=== PATIENT | female | born 1955 | race Caucasian/White ===

== ENCOUNTER 2021-11-08 08:00 | Outpatient (CLI) | payer OTHER ==
--- NOTE | 2021-11-08 16:36 | XRAY Report ---
PROCEDURE: Knee 4 View BILAT INDICATIONS: BILAT KNEE PAIN TECHNIQUE: 3 views of the bilateral knee(s) were acquired. COMPARISON: 03/08/2018 FINDINGS: Moderate to severe bilateral knee osteoarthritis with near complete loss of joint space and areas of suspected bone on bone contact. Findings are most pronounced in the medial femorotibial compartments and in the patellofemoral compartments. There is bilateral patellar subluxation and tilt. No fracture or dislocation. IMPRESSION: Moderate to severe bilateral tricompartmental osteoarthritis. Joint space narrowing is progressed from prior study. Reviewed by: Adarsh Streeter MD on 11/08/2021 4:35 PM PDT Approved by: Adarsh Streeter MD on 11/08/2021 4:35 PM PDT Station ID: [id number]
== END 2021-11-08 23:59 | disposition home or self-care (01) ==
LOC: DI.WOS 08:00
PROVIDERS: ATTEND Orthopaedic Surgery
DX: M17.0 Bilateral primary osteoarthritis of knee (principal)

== ENCOUNTER 2022-03-15 07:10 | Day surgery (SDC) | payer OTHER ==
[~2022-03-15 07:10] MED LIST: ACETAMINOPHEN 500 MG TABLET PO ONE; BUPIVACAINE 0.5% PF 30 ML VIAL ONE; CEFAZOLIN 2G/50ML 0.9% NS 2 GM/50 ML BAG IV ONE; CELECOXIB 100 MG CAPSULE PO ONE; DEXAMETHASONE 10 MG/ML VIAL ONE; KETOROLAC 30 MG/ML VIAL ONE; VANCOMYCIN 1 GM VIAL ONE
[2022-03-15] MEDS ORDERED: PROPOFOL 200 MG/20 ML VIAL IVP ONE (07:22)
[2022-03-15] MEDS ORDERED: PROPOFOL 500 MG/50 ML 500 MG/50 ML VIAL ONE (07:22)
[2022-03-15] MEDS ORDERED: MIDAZOLAM 2 MG/2 ML VIAL ONE (07:28)
[2022-03-15] MEDS ORDERED: fentaNYL 100 MCG/2 ML VIAL ONE (07:28)
[2022-03-15] MEDS ORDERED: DEXAMETHASONE 10 MG/ML VIAL ONE (07:29)
[2022-03-15] MEDS ORDERED: TRANEXAMIC ACID 1,000 MG/10 ML VIAL ONE (07:29)
[2022-03-15] MEDS ORDERED: BUPIVACAINE 0.5% PF 10 ML VIAL ONE (07:31)
[2022-03-15] MEDS ORDERED: LACTATED RINGERS 1,000 ML IV ONE ×2 (07:43→11:14)
--- NOTE | 2022-03-15 07:50 | ANESTHESIA ---
Pre-Anesthesia VS, & Labs - Diagnosis Bilat knee OA - Procedure R TKA Vital Signs: Temp Pulse Resp BP Pulse Ox O2 Flow Rate 36.8 C 112 H 16 147/86 H 96 03/15/22 07:27 03/15/22 07:27 03/15/22 07:27 03/15/22 07:27 03/15/22 07:27 Height: 5 ft 4.5 in Weight (kg): 81 kg Body Mass Index: 30.2 BMI Classification: Obese - NPO >8 hours - Is Patient ?: No - Lab Results Lab results reviewed: Yes Home Medications and Allergies Home Medications: Ambulatory Orders Acetaminophen [Tylenol] 650 mg PO Q6H PRN 03/06/22 Atorvastatin [Lipitor] 10 mg PO QPM 03/06/22 Calcium Carbonate [Antacid] 215 mg PO PRN PRN 03/06/22 Cholecalciferol [Vitamin D3] 50 mcg PO DAILY 03/06/22 Lysine HCl [l-Lysine] 1,000 mg PO PRN PRN 03/06/22 Multivitamin/Iron/Folic Acid [Centrum Women Tablet] 1 each PO DAILY 03/06/22 Naproxen Sodium [Aleve] 220 mg PO DAILY 03/06/22 metFORMIN [Glucophage] 500 - 1,000 mg PO BIDWM 03/06/22 Acetaminophen [Tylenol] 650 mg PO Q6H PRN 03/06/22 Atorvastatin [Lipitor] 10 mg PO QPM 03/06/22 Calcium Carbonate [Antacid] 215 mg PO PRN PRN 03/06/22 Cholecalciferol [Vitamin D3] 50 mcg PO DAILY 03/06/22 Lysine HCl [l-Lysine] 1,000 mg PO PRN PRN 03/06/22 Multivitamin/Iron/Folic Acid [Centrum Women Tablet] 1 each PO DAILY 03/06/22 Naproxen Sodium [Aleve] 220 mg PO DAILY 03/06/22 metFORMIN [Glucophage] 500 - 1,000 mg PO BIDWM 03/06/22 Allergies/Adverse Reactions: Allergies Allergy/AdvReac Type Severity Reaction Status Date / Time Iodinated Contrast Media Allergy Rash Verified 03/06/22 10:37 Anes History & Medical History - Anesthetic History Anesthesia Complications: reports: No previous complications Family history of Anesthesia Complications: Denies Family history of Malignant Hyperthermia: Denies - Medical History Cardiovascular: reports: Deep vein thrombosis Pulmonary: reports: Sleep apnea Gastrointestinal: reports: None Urinary: reports: None Musculoskeletal: reports: Osteoarthritis Endocrine/Autoimmune: reports: Type 2 diabetes Skin: reports: Rosacea Smoking Status: Never smoker - Surgical History General: reports: Bowel surgery, Colonoscopy Gynecologic: reports: Hysterectomy, Other Exam General: Alert, Oriented x3, Cooperative Dental: WNL Mouth Openin Fingerbreadth Neck Mobility: Normal Mallampati classification: II Thyromental Distance: 4-6 cm Respiratory: Lungs clear, Normal breath sounds, No respiratory distress Cardiovascular: Regular rate Neurological: Normal speech Mental/Cognitive Status: Alert/Oriented X3, Normal for patient Cognitive Status: Within normal limits Plan Anesthesia Type: General, Spinal, Adductor Block Consent for Procedure(s) Verified and Reviewed: Yes Code Status: Attempt Resuscitation ASA classification: 2-Mild systemic disease Is this case an emergency?: No
[2022-03-15] MEDS ORDERED: ATROPINE ABBOJECT 1 MG/10 ML SYRINGE IVP PRN (08:57)
[2022-03-15] MEDS ORDERED: ePHEDrine 50 MG/ML VIAL IVP PRN (08:57)
[2022-03-15] MEDS ORDERED: HYDROmorphone 0.5 MG/0.5 ML SYRINGE IVP PRN (08:57)
[2022-03-15] MEDS ORDERED: NALOXONE 0.4 MG/ML VIAL IVP PRN (08:57)
[2022-03-15] MEDS ORDERED: ONDANSETRON 4 MG/2 ML VIAL IVP PRN ×2 (08:57→11:20)
[2022-03-15] MEDS ORDERED: METOCLOPRAMIDE 10 MG/2 ML VIAL IVP PRN (08:57)
[2022-03-15] MEDS ORDERED: fentaNYL 100 MCG/2 ML VIAL IVP PRN (08:57)
[2022-03-15] MEDS ORDERED: MORPHINE 2 MG/ML CARPUJECT IVP PRN (08:57)
[2022-03-15] MEDS ORDERED: LACTATED RINGERS 1,000 ML IV SCH (09:00)
[2022-03-15] MEDS ORDERED: VANCOMYCIN 1 GM VIAL MC ONE ×2 (09:10)
[2022-03-15] MEDS ORDERED: BUPIVACAINE 0.5% PF 30 ML VIAL INFIL ONE ×2 (09:12)
[2022-03-15] MEDS ORDERED: KETOROLAC 30 MG/ML VIAL IVP ONE (09:13)
[2022-03-15] MEDS ORDERED: ROPIVACAINE 0.5% PF 30 ML VIAL ONE (10:32)
--- NOTE | 2022-03-15 10:41 | OPERATIVE REPORT ---
Operative Report - General Procedure Date: 03/15/22 Planned Procedure: Right total knee replacement Pre-Op Diagnosis: Osteoarthritis right knee Procedure Performed: Right total knee replacement using [employer] journey 2 Antibiotic cemented total knee system: #4 Oxinium cruciate substituting femoral component, #3 tibial baseplate with 10 mm tibial bearing with post, 23 mm biconcave patellar component Post Op Diagnosis: Same as preoperative diagnosis - Procedure Note Primary Surgeon: Edward Lockwood MD Secondary Surgeon: Chester Dockery Anesthesia Provider: Chevy Camara CRNA Anesthesia Technique: Regional block, Spinal Estimated Blood Loss (mL): 100 Indications: This is a 66-year-old woman with advanced bilateral knee osteoarthritis who is also diabetic. She has had chronic knee pain with activity that is progressively worsened despite nonoperative treatment. She has joint line tenderness, decreased motion, crepitus on right knee exam. Her routine x-rays show complete loss of joint space tricompartmental both knees. She has been evaluated preoperatively and found to be acceptable candidate for knee replacement surgery. She has signed informed consent in our office prior to surgery. Findings: There was considerable wear with eburnated surfaces to both medial and lateral compartments, osteophytes about the tibiofemoral and patellofemoral joints. Her cruciate ligament posteriorly was friable and lax. She had valgus laxity noted prior to surgery incision, best noted after anesthesia had been obtained.There was mild effusion and mild synovitis about the knee joint.There is no sign of overt infection. Complications: None - Other Other Information/Narrative: The patient was brought to the operating room and was placed in a supine position. She was given a adductor canal block by anesthesia. A pneumatic tourniquet was applied to the proximal right thigh over cast padding. This was a conical shaped Ludmila thigh tourniquet that was sterile. An adjustable leg rodriguez was placed on the operating room table to facilitate knee flexion of the left knee during surgery. A timeout procedure was performed by the entire operating room team and all were in agreement. A midline longitudinal incision was made with the knee in flexion. A medial parapatellar arthrotomy was made. The anterior horn of medial and lateral menisci were released and part of patellar fat pad was excised. The knee was flexed and the patella was dislocated laterally. A drill hole was made in the intramedullary notch with a 9.5 mm drill. Osteophytes about the proximal tibia and femur had been removed with a rongeur. The distal femoral cutting guide was aligned parallel to the posterior condyles. The intramedullary stacey and guide was advanced and the distal femoral guide was stabilized with half pins. The distal 5 degrees valgus cut was made through the distal femoral guide. Next the extra medullary tibial guide was assembled and applied and aligned to the mechanical axis in both sagittal and coronal planes. Tibial referencing was done to allow 3 mm of bone from the most affected side. The tibial guide was stabilized with half pins. Retractors were placed medially and laterally to protect the collateral ligaments and a retractor was placed directly against the posterior bone to sublux the tibia anteriorly. A [employer] precision 8 saw was used to make the tibial proximal cut. The tibial block was removed as a single piece and the menisci were excised as well. The extension gap was assessed with a extension block spacer using a 10 mm spacer and this was found to fit well as well as the 10 mm spacer block with the knee in 90 degrees of flexion. Next the femoral positioning guide was applied and aligned to the epicondylar axis and Yates line. This was secured in place with approximately 3 degrees of external rotation. The size of the femur at the anterior lateral trochlea was a #4. Drill holes were made in the 5 and 1 #4 cutting block was inserted and secured. The 5 cuts were made to the captured block using oscillating saw. The notch of the femur was removed with the reamers posteriorly and anteriorly as well as the box osteotome. The flexion gap was assessed with the 10 mm spacer and was found to fit well. The patella was then prepared. A 23 mm biconvex patellar reamer was used. The tibial trial #3 was then applied to the tibia and aligned to the mechanical axis. The drill and punch fin was utilized. Trial reduction was performed with the femoral and tibial components in place. Pulsatile lavage was performed. Hydrogen peroxide was used to help irrigate the bone surfaces prior to cementing as well as pulsatile lavage. A tourniquet was applied during the cementing process. The components were inserted sequentially: Tibia, femur and lastly patellar component. The tibial bearing was inserted after all the components had been cemented. The 10 mm tibial bearing with post gave good stability and alignment.Excess cement was removed and the knee was placed in extension during the hardening. Dilute Betadine irrigation was performed For 3 minutes. The knee had full range of motion, good patellar tracking. There was good stability of the knee in full extension mid flexion and 90 degrees of flexion. There was good alignment of the right knee. The tourniquet had been deflated and had been in place for 22 minutes. Hemostasis was achieved with electrocautery. Vancomycin powder 2 g were inserted in the arthrotomy prior to deep closure. The deep closure was performed with #2 Ethibond proximal and distal to the patella with the knee in 40 degrees of flexion. #1 stratofix suture was then used to close the arthrotomy incision. 2-0 Stratofix was used to close the subcutaneous tissue. 3-0 Monocryl was used to do a subcuticular skin closure. Dermabond was applied to the skin incision. After the Dermabond had hardened, a silver impregnated dressing was applied. She tolerated the procedure well and received 2 g of Ancef intravenously and 2 g of tranxamic acid. A surgical territory manager was utilized during the procedure and was found to be necessary component to help with exposure, protection of vital structures and closure.The patient did receive 2 g of Ancef intravenously, antibiotic impregnated cement and 1 g of Gaspar c-Myc acid. She did tolerate the procedure well
[2022-03-15] MEDS ORDERED: ONDANSETRON 4 MG/2 ML VIAL ONE (10:48)
[2022-03-15] MEDS ORDERED: fentaNYL 250 MCG/5 ML VIAL IVP PRN (11:20)
[2022-03-15] MEDS ORDERED: SODIUM CHLORIDE 0.9% 1,000 ML IV ONE (11:20)
[2022-03-15] MEDS ORDERED: DOCUSATE SODIUM 100 MG CAPSULE PO PRN (11:20)
[2022-03-15] MEDS ORDERED: SODIUM CHLORIDE FLUSH 0.9% 10 ML SYRINGE IVP PRN (11:20)
[2022-03-15] MEDS: ACETAMINOPHEN 500 MG TABLET PO SCH ×2 (12:22→18:31)
[2022-03-15] MEDS: NS W/20 MEQ KCL 1,000 ML IV SCH ×2 (12:23→22:24)
--- NOTE | 2022-03-15 12:23 | XRAY Report ---
PROCEDURE: Knee 2 View RT INDICATIONS: post operative imaging TECHNIQUE: 2 views of the right knee(s) were acquired. COMPARISON: None. FINDINGS: Bones: Postoperative changes following knee arthroplasty. Hardware appears to be in appropriate posit ion. Patellar resurfacing. Soft tissues: Postoperative changes. IMPRESSION: Postoperative changes following knee arthroplasty. Reviewed by: Werner Gross MD on 03/15/2022 12:22 PM PST Approved by: Werner Gross MD on 03/15/2022 12:22 PM PST Station ID: [id number]
[2022-03-15] MEDS: oxyCODONE 5 MG TABLET PO PRN ×2 (12:56→19:06)
--- NOTE | 2022-03-15 12:56 | ANESTHESIA POST OP EVALUATION ---
Anesthesia Post Eval - Post Anesthesia Eval Vitals: Last Vital Signs Temp 36.9 C 03/15/22 11:50 Pulse 90 03/15/22 12:03 Resp 16 03/15/22 11:50 BP 114/79 03/15/22 12:03 Pulse Ox 97 03/15/22 12:03 O2 Flow Rate CV Function Including HR & BP: Stable Pain Control: Satisfactory Nausea & Vomiting: Negative Mental Status: Baseline Respiratory Status: Airway Patent Hydration Status: Satisfactory Anesthesia Complications: None
[2022-03-15] MEDS ORDERED: CEFAZOLIN 2G/50ML 0.9% NS 2 GM/50 ML BAG IV SCH (16:00)
[2022-03-15] MEDS: SODIUM CHLORIDE FLUSH 0.9% 10 ML SYRINGE IVP SCH (17:08)
[2022-03-15] MEDS ORDERED: metFORMIN 500 MG TABLET PO SCH (21:00)
[2022-03-15] MEDS: CELECOXIB 100 MG CAPSULE PO SCH (22:13)
[2022-03-15] MEDS: ethyl alcohoL 62% SWAB AMPULE NAS SCH (22:13)
[2022-03-16] MEDS ORDERED: ceFAZolin 1 GM VIAL ONE (00:22)
[2022-03-16] MEDS: ACETAMINOPHEN 500 MG TABLET PO SCH ×3 (00:37→12:38)
[2022-03-16] MEDS: SODIUM CHLORIDE FLUSH 0.9% 10 ML SYRINGE IVP SCH ×2 (00:38→08:46)
[2022-03-16] MEDS ORDERED: CEFAZOLIN 2G/50ML 0.9% NS 2 GM/50 ML BAG IV SCH (01:00)
[2022-03-16] MEDS: ethyl alcohoL 62% SWAB AMPULE NAS SCH (08:45)
[2022-03-16] MEDS: CELECOXIB 100 MG CAPSULE PO SCH (08:45)
[2022-03-16] MEDS ORDERED: metFORMIN 500 MG TABLET PO SCH (09:00)
[2022-03-16] MEDS ORDERED: ASPIRIN EC 81 MG TABLET PO SCH (09:00)
[2022-03-16] MEDS: oxyCODONE 5 MG TABLET PO PRN (12:39)
[2022-03-16 13:13] VITALS: BP 125/84
--- NOTE | 2022-03-16 13:37 | PROVIDER PROGRESS NOTE ---
Subjective - General Procedure Date: 03/15/22 Post Op Days: 1 Procedure Performed: Right total knee arthroplasty - Review of Systems Wound/Incisions: positive: Healing well, Dressing dry and intact, No drainage General: positive: No symptoms. negative: Fever - Other Other Information/Narrative: Alert and oriented sitting in chair Reports she worked with physical therapy this morning and walked around the room 2 times with a front wheeled walker Sensation has returned after nerve block yesterday Pain is well controlled and she is tolerating oral intake of food No chest pain, trouble breathing, calf tenderness, nausea or vomiting Objective - Patient Data Vital Signs: Vital Signs x48h Temp Pulse Resp BP Pulse Ox 03/16/22 13:00 37.1 C 94 16 125/84 H 97 03/16/22 07:46 37.0 C 98 16 123/72 95 Weight: Weight 03/14/22 03/15/22 03/16/22 23:59 23:59 23:59 Weight (kg) 81 kg Intake & Output: Intake and Output Totals x24h 03/14/22 03/15/22 03/16/22 23:59 23:59 23:59 Intake Total 1450 2290 Output Total 750 800 Balance 700 1490 - Imaging Results Radiology Imaging: positive: Final report received (Radiologist report of x-ray includes expected postoperative changes for right total knee arthroplasty) - Current Medications Current Medications: Current Medications Generic Name Dose Route Start Last Admin Trade Name Freq PRN Reason Stop Dose Admin Acetaminophen 1,000 mg 03/15/22 12:00 03/16/22 12:38 Acetaminophen 500 Mg Tablet PO Not Given Q6H SUNDAR Alcohol 1 amp 03/15/22 21:00 03/16/22 08:45 Ethyl Alcohol 62% Swab Ampule JOSÉ MIGUEL 1 amp BID SUNDAR Administration Aspirin 81 mg 03/16/22 09:00 03/16/22 08:45 Aspirin Ec 81 Mg Tablet PO 81 mg BID SUNDAR Administration Celecoxib 200 mg 03/15/22 21:00 03/16/22 08:45 Celecoxib 100 Mg Capsule PO 200 mg BID SUNDAR Administration Docusate Sodium 100 mg 03/15/22 11:20 03/16/22 08:49 Docusate Sodium 100 Mg Capsule PO 100 mg BID PRN Administration Constipation Potassium Chloride/Sodium Chloride 1,000 mls @ 100 mls/hr 03/15/22 12:00 03/16/22 09:00 Normal Saline 0.9% W/20 Meq Kcl IV Infused .Q10H SUNDAR Infusion Metformin HCl 500 mg 03/16/22 09:00 03/16/22 08:45 Metformin 500 Mg Tablet PO 500 mg DAILY SUNDAR Administration Oxycodone HCl 5 mg 03/15/22 11:20 03/16/22 12:39 Oxycodone 5 Mg Tablet PO 5 mg Q6HR PRN Administration PAIN Sodium Chloride 10 ml 03/15/22 17:00 03/16/22 08:46 Sodium Chloride Flush 0.9% 10 Ml Syringe IVP Not Given 0100,0900,1700 SUNDAR - Physical Exam Wound/Incisions: positive: Healing well, Dressing dry and intact. negative: No drainage, Drainage, Erythema General Appearance: positive: No acute distress, Alert Respiratory: positive: No respiratory distress Skin: positive: Color nml, Warm, Dry. negative: Diaphoresis Extremities: positive: Nml appearance, No pedal edema, Other (Mepilex dressing in place without drainage. No erythema or hematoma formation about the right knee. Joshua bandage in place around Mepilex dressing). negative: Calf tenderness Neurologic/Psychiatric: positive: Oriented x3 Comments/Other: Sciatic and femoral nerve intact. Neurovascularly intact to right lower ext remity. Impression/Plan - Problem List Problem List: 66-year-old female with a past medical history of diabetes mellitus is postope rative day 1 from right total knee arthroplasty by Dr. Lockwood at [facility] on 03/15/2022. She is recovering well, tolerating oral intake without nausea or vomiting and well-controlled pain. Plan: -Weightbearing as tolerated with front wheel walker to right lower extremity -Physical therapy and Occupational Therapy to evaluate patient today and complete gait training -Multimodal pain control with Celebrex, Tylenol, oxycodone and IV fentanyl. She was prescribed oxycodone and tramadol for the outpatient setting. -Carb controlled diabetic diet -DVT prophylaxis with SCDs and 81 mg of aspirin twice daily for 6 weeks -Home medications include 500 mg of metformin daily in the morning and 1000 mg of metformin daily in the evening -[id number] glucose ordered today -She is ready for discharge from an orthopedic perspective pending PT evaluation -Follow-up with the orthopedic clinic in 5 days -For any questions please refer to your joint camp booklet and call the orthopedic office with any questions -Mepilex dressing to remain in place upon discharge. Should stay in place for up to 5 days until follow-up in the orthopedic office.
== END 2022-03-16 13:37 | disposition home or self-care (01) ==
LOC: SDS 07:10 → MS3 11:50 → SDS 03-16 13:37
PROVIDERS: ATTEND Orthopaedic Surgery
DX: M17.0 Bilateral primary osteoarthritis of knee (principal); E11.9 Type 2 diabetes mellitus without complications; E66.9 Obesity, unspecified; G47.30 Sleep apnea, unspecified; Z68.30 Body mass index [BMI] 30.0-30.9, adult; Z79.84 Long term (current) use of oral hypoglycemic drugs
CPT/HCPCS: 27447; 73560; 97110; 97161; 97165; 97530; A9270; C1713; J0690; J3370; J7120

== ENCOUNTER 2022-05-16 15:03 | Outpatient (CLI) | payer OTHER ==
--- NOTE | 2022-05-16 15:59 | XRAY Report ---
PROCEDURE: Knee 4 View RT INDICATIONS: RIGHT KNEE PAIN TECHNIQUE: 4 views of the right knee, one view of the left knee COMPARISON: 03/15/2022 FINDINGS: Bones: Expected appearance of the right knee arthroplasty. No displaced fracture or dislocation. Sof t tissue swelling is present. Patellar resurfacing. Soft tissues: Joint effusion is likely present. There is soft tissue swelling. Partially visualized left knee with advanced degenerative changes. IMPRESSION: Expected appearance of the right knee arthroplasty, with postoperative swelling and marii a. Partially visualized left knee with advanced degenerative changes. Reviewed by: Werner Gross MD on 05/16/2022 3:58 PM PST Approved by: Werner Gross MD on 05/16/2022 3:58 PM PST Station ID: [id number]
== END 2022-05-16 15:05 | disposition home or self-care (01) ==
LOC: DI.WOS 15:03
PROVIDERS: ATTEND Orthopaedic Surgery
DX: Z96.651 Presence of right artificial knee joint (principal); M17.12 Unilateral primary osteoarthritis, left knee

== ENCOUNTER 2022-06-27 14:30 | Outpatient (CLI) | payer OTHER ==
--- NOTE | 2022-06-27 16:28 | XRAY Report ---
PROCEDURE: Knee 4 View LT INDICATIONS: LEFT KNEE PAIN TECHNIQUE: 4 views of the left knee(s) were acquired. COMPARISON: None. FINDINGS: Bones: No fractures or dislocations. No suspicious bony lesions. Severe left knee tricompartmental osteophytic degenerative change with joint space narrowing and marginal osteophytosis. Soft tissues: No joint effusion. No suspicious soft tissue calcifications. IMPRESSION: Severe left knee tricompartmental osteoarthritis. Reviewed by: India Bowser MD, PhD on 06/27/2022 4:27 PM PST Approved by: India Bowser MD, PhD on 06/27/2022 4:27 PM PST Station ID: [id number]
== END 2022-06-27 14:41 | disposition home or self-care (01) ==
LOC: DI.WOS 14:30
PROVIDERS: ATTEND Orthopaedic Surgery
DX: M17.0 Bilateral primary osteoarthritis of knee (principal)

== ENCOUNTER 2022-08-23 06:32 | Day surgery (SDC) | payer OTHER ==
[~2022-08-23 06:32] MED LIST changes: -BUPIVACAINE 0.5% PF 30 ML VIAL ONE; -DEXAMETHASONE 10 MG/ML VIAL ONE; -KETOROLAC 30 MG/ML VIAL ONE; -VANCOMYCIN 1 GM VIAL ONE
[2022-08-23] MEDS ORDERED: LACTATED RINGERS 1,000 ML IV ONE ×2 (06:48→10:38)
[2022-08-23] MEDS ORDERED: HYDROmorphone 0.5 MG/0.5 ML SYRINGE IVP PRN (06:50)
[2022-08-23] MEDS ORDERED: MORPHINE 2 MG/ML CARPUJECT IVP PRN (06:50)
[2022-08-23] MEDS ORDERED: ATROPINE ABBOJECT 1 MG/10 ML SYRINGE IVP PRN (06:50)
[2022-08-23] MEDS ORDERED: ePHEDrine 50 MG/ML VIAL IVP PRN (06:50)
[2022-08-23] MEDS ORDERED: NALOXONE 0.4 MG/ML VIAL IVP PRN (06:50)
[2022-08-23] MEDS ORDERED: ONDANSETRON 4 MG/2 ML VIAL IVP PRN ×2 (06:50→10:40)
[2022-08-23] MEDS ORDERED: METOCLOPRAMIDE 10 MG/2 ML VIAL IVP PRN (06:50)
[2022-08-23] MEDS ORDERED: fentaNYL 100 MCG/2 ML VIAL IVP PRN (06:50)
--- NOTE | 2022-08-23 06:51 | ANESTHESIA ---
Pre-Anesthesia VS, & Labs - Diagnosis L knee OA - Procedure L TKA Height: 5 ft 4.5 in - NPO >8 hours - Is Patient ?: No - Lab Results Lab results reviewed: Yes Home Medications and Allergies Home Medications: Ambulatory Orders Aspirin [Aspirin EC] 81 mg PO DAILY 08/14/22 Ibuprofen [Motrin] 600 mg PO Q6H PRN 08/14/22 Metformin HCl [Metformin ER Osmotic] 500 mg PO DAILY 08/14/22 Acetaminophen [Tylenol] 650 mg PO Q6H PRN 03/06/22 Atorvastatin [Lipitor] 20 mg PO QPM 03/06/22 Cholecalciferol [Vitamin D3] 4,000 intlu PO DAILY 03/06/22 Lysine HCl [l-Lysine] 1,000 mg PO PRN PRN 03/06/22 Multivitamin/Iron/Folic Acid [Centrum Women Tablet] 1 each PO DAILY 03/06/22 Metformin HCl [Metformin ER Osmotic] 1,000 mg PO QPM 03/15/22 Aspirin [Aspirin EC] 81 mg PO DAILY 08/14/22 Ibuprofen [Motrin] 600 mg PO Q6H PRN 08/14/22 Metformin HCl [Metformin ER Osmotic] 500 mg PO DAILY 08/14/22 Allergies/Adverse Reactions: Allergies Allergy/AdvReac Type Severity Reaction Status Date / Time Iodinated Contrast Media Allergy Rash Verified 03/06/22 10:37 Anes History & Medical History - Anesthetic History Anesthesia Complications: reports: No previous complications Family history of Anesthesia Complications: Denies Family history of Malignant Hyperthermia: Denies - Medical History Cardiovascular: reports: Deep vein thrombosis Pulmonary: reports: Sleep apnea Gastrointestinal: reports: None Urinary: reports: None Musculoskeletal: reports: Osteoarthritis Endocrine/Autoimmune: reports: Type 2 diabetes Skin: reports: Rosacea Smoking Status: Never smoker - Surgical History General: reports: Bowel surgery, Colonoscopy Gynecologic: reports: Hysterectomy, Other Orthopedic: reports: Knee replacement Exam General: Alert, Oriented x3, Cooperative Dental: WNL Mouth Openin Fingerbreadth Neck Mobility: Normal Mallampati classification: II Thyromental Distance: 4-6 cm Respiratory: Lungs clear, Normal breath sounds, No respiratory distress Cardiovascular: Regular rate Neurological: Normal speech Mental/Cognitive Status: Alert/Oriented X3, Normal for patient Cognitive Status: Within normal limits Plan Anesthesia Type: General, Spinal Consent for Procedure(s) Verified and Reviewed: Yes Code Status: Attempt Resuscitation ASA classification: 2-Mild systemic disease Is this case an emergency?: No
[2022-08-23] MEDS ORDERED: fentaNYL 100 MCG/2 ML VIAL ONE ×2 (07:00→09:13)
[2022-08-23] MEDS ORDERED: LACTATED RINGERS 1,000 ML IV SCH (07:00)
[2022-08-23] MEDS ORDERED: MIDAZOLAM 2 MG/2 ML VIAL ONE (07:00)
[2022-08-23] MEDS ORDERED: BUPIVACAINE 0.5% PF 10 ML VIAL ONE (07:02)
[2022-08-23] MEDS ORDERED: PROPOFOL 500 MG/50 ML 500 MG/50 ML VIAL ONE (07:08)
[2022-08-23] MEDS ORDERED: DEXAMETHASONE 10 MG/ML VIAL ONE (07:14)
[2022-08-23] MEDS ORDERED: VANCOMYCIN 1 GM VIAL ONE (07:14)
[2022-08-23] MEDS ORDERED: BUPIVACAINE 0.25% PF 30 ML VIAL ONE ×4 (07:15→10:05)
[2022-08-23] MEDS ORDERED: KETOROLAC 30 MG/ML VIAL ONE (07:24)
[2022-08-23] MEDS ORDERED: TRANEXAMIC ACID 1,000 MG/10 ML VIAL ONE ×2 (07:55→10:34)
[2022-08-23] MEDS ORDERED: VANCOMYCIN 1 GM VIAL MC ONE (08:15)
[2022-08-23] MEDS ORDERED: KETOROLAC 30 MG/ML VIAL IVP ONE (08:16)
[2022-08-23] MEDS ORDERED: BUPIVACAINE 0.25% PF 30 ML VIAL SUBQ ONE ×2 (08:16)
[2022-08-23] MEDS ORDERED: HYDROGEN PEROXIDE 3% 473 ML BOTTLE TOP ONE (08:16)
[2022-08-23] MEDS ORDERED: PROPOFOL 200 MG/20 ML VIAL IVP ONE ×3 (08:46→10:07)
--- NOTE | 2022-08-23 10:15 | OPERATIVE REPORT ---
Operative Report - General Procedure Date: 08/23/22 Planned Procedure: Left Total knee replacement Pre-Op Diagnosis: Varus osteoarthritis left knee Procedure Performed: Left total knee replacement using Long [employer] Nephew journey 2, antibiotic cemented components: #4 Oxinium posterior stabilized femoral component, #3 primary tibial baseplate, 9 mm posterior cruciate substituting tibial bearing, 23 mm biconvex patellar component - Procedure Note Indications: This is a 66-year-old woman with advanced osteoarthritis of both knees, failure of conservative treatment as has been documented in the clinic notes. She had a right total knee replacement in February of last year with favorable outcome and desires similar outcome with her left knee. She did have joint line tenderness to left knee, varus deformity, decreased motion, crepitus, good strength and tracking of patella. Her x-rays showed advanced degenerative joint disease with [id number] of the medial compartment, narrowing of the lateral compartment, large osteophytes about the tibiofemoral and patellofemoral joint. She has been to joint camp, has had preoperative medical evaluation by primary care and signed informed consent agreeing to left total knee replacement surgery at [facility] as outpatient. Findings: There was complete loss of articular cartilage to the medial compartment, eburn ated bone surfaces, areas of full-thickness loss and wear to lateral compartment, complete loss of articular cartilage to patella, large osteophytes about the tibiofemoral and patellofemoral joint, cruciate ligaments and menisci intact Complications: None - Other Other Information/Narrative: The patient was brought to the operating room and was placed in a supine position. A pneumatic tourniquet was applied to the proximal left thigh over cast padding. This was a conical shaped Ludmila thigh tourniquet that was sterile. A bump was placed on the operating room table to facilitate knee flexion of the left knee during surgery. A timeout procedure was performed by the entire operating room team and all were in agreement. A midline longitudinal incision was made with the knee in flexion. A medial parapatellar arthrotomy was made. The anterior horn of medial and lateral menisci were released and part of patellar fat pad was excised. The knee was flexed and the patella was dislocated laterally. A drill hole was made in the intramedullary notch with a 9.5 mm drill. Osteophytes about the proximal tibia and femur had been removed with a rongeur. The distal femoral cutting guide was aligned parallel to the posterior condyles. The intramedullary stacey and guide was advanced and the distal femoral guide was stabilized with half pins. The distal 5 degrees valgus cut was made through the distal femoral guide. Next the extra medullary tibial guide was assembled and applied and aligned to the mechanical axis in both sagittal and coronal planes. Tibial referencing was done to allow 3 mm of bone from the most affected side and 10 mm from the least affected side. The tibial guide was stabilized with half pins. Retractors were placed medially and laterally to protect the collateral ligaments and a retractor was placed directly against the posterior bone to sublux the tibia anteriorly. An oscillating saw was used to make the tibial proximal cut. The tibial block was removed as a single piece and the menisci were removed as well. The extension and flexion gaps were assessed with a appropriate block spacers. A 10 mm spacer and this was found to fit well as well as the 9 mm spacer block with the knee in 90 degrees of flexion. Next the femoral positioning guide was applied and aligned to the epicondylar axis and Valley line. This was secured in place with approximately 3 degrees of external rotation. The size of the femur at the anterior lateral trochlea was a #4. Drill holes were made in the 5 and 1 #4 cutting block was inserted and secured. The 5 cuts were made to the captured block using oscillating saw. A trial femoral component was applied and notch reamers were used to remove the notch for the posterior stabilized femoral component The patella was then prepared. A biconvex patellar reamer was used. The tibial trial #3 was then applied to the tibia and aligned to the mechanical axis. Trial reduction was performed with the femoral and tibial components in place. Pulsatile lavage was performed. A tourniquet was applied during the cementing process. The components were inserted sequentially: Tibia, femur and lastly patellar component. Excess cement was removed and the knee was placed in extension during the hardening. Dilute Betadine irrigation was performed. The knee had full range of motion, good patellar tracking. There was good stability of the knee in full extension mid flexion and 90 degrees of flexion. There was good alignment of the left knee. The tourniquet had been deflated and had been in place for 37 minutes. Tourniquet time was longer because of problems with the nozzle cement sprayer helper and having to do 2 or 3 attempts to obtain satisfactory cement for utilization.Hemostasis was achieved with electrocautery. The deep closure was performed with #2 Ethibond proximal and distal to the patella with the knee in 40 degrees of flexion. 1. STRATAFIX suture was then used to close the arthrotomy incision. 2-0 Strata fix was used to close the subcutaneous tissue. 3-0 Monocryl was used to do a subcuticular skin closure. Dermabond was applied to the skin incision. After the Dermabond had hardened, a silver impregnated dressing was applied. She tolerated the procedure well and received 2 g of Ancef intravenously and 2 g of tranexamic acidA physician assistant family teacher was medically necessary to help with prepping and draping, positioning, protection of vital structures, assistance during the procedure including wound closure, dressing and/or splinting.A physician assistantWas utilized during the procedure to help with prepping and draping, retraction and protection of vital structures, wound closure and dressing application
[2022-08-23] MEDS ORDERED: oxyCODONE 5 MG TABLET PO PRN (10:40)
[2022-08-23] MEDS ORDERED: fentaNYL 250 MCG/5 ML VIAL IVP PRN (10:40)
[2022-08-23] MEDS ORDERED: SODIUM CHLORIDE FLUSH 0.9% 10 ML SYRINGE IVP PRN (10:40)
[2022-08-23] MEDS ORDERED: DOCUSATE SODIUM 100 MG CAPSULE PO PRN (10:40)
[2022-08-23] MEDS ORDERED: SODIUM CHLORIDE 0.9% 1,000 ML IV ONE (10:40)
--- NOTE | 2022-08-23 11:14 | XRAY Report ---
PROCEDURE: Knee 2 View LT INDICATIONS: post operative imaging TECHNIQUE: 2 views of the left knee(s) were acquired. COMPARISON: None. FINDINGS: Bones: Patient is status post left total knee arthroplasty. Left knee alignment is anatomic. No frac tures or dislocations. No suspicious bony lesions. Soft tissues: Expected postsurgical changes are seen in anterior and lateral left knee soft tissue. N o suspicious soft tissue calcifications or masses. IMPRESSION: Postoperative changes from left total knee arthroplasty with anatomic left knee alignment. Reviewed by: Maik Fam MD on 08/23/2022 11:12 AM PDT Approved by: Maik Fam MD on 08/23/2022 11:12 AM PDT Station ID: [id number]
--- NOTE | 2022-08-23 12:05 | ANESTHESIA POST OP EVALUATION ---
Anesthesia Post Eval - Post Anesthesia Eval Vitals: Last Vital Signs Temp 37.2 C 08/23/22 11:28 Pulse 85 08/23/22 11:28 Resp 10 L 08/23/22 11:28 BP 109/70 08/23/22 11:28 Pulse Ox 98 08/23/22 11:28 O2 Flow Rate CV Function Including HR & BP: Stable Pain Control: Satisfactory Nausea & Vomiting: Negative Mental Status: Baseline Respiratory Status: Airway Patent Hydration Status: Satisfactory Anesthesia Complications: None
[2022-08-23] MEDS: ACETAMINOPHEN 500 MG TABLET PO SCH ×2 (12:58→18:46)
[2022-08-23] MEDS: polyethylene glycoL 3350 17 GM PACKET PO SCH (12:59)
[2022-08-23] MEDS: traMADol 50 MG TABLET PO SCH ×2 (12:59→18:45)
[2022-08-23] MEDS: NS W/20 MEQ KCL 1,000 ML IV SCH (12:59)
[2022-08-23] MEDS ORDERED: CEFAZOLIN 2G/50ML 0.9% NS 2 GM/50 ML BAG IV SCH (14:00)
[2022-08-23] MEDS: CELECOXIB 100 MG CAPSULE PO SCH ×2 (18:45→19:38)
[2022-08-23] MEDS: SODIUM CHLORIDE FLUSH 0.9% 10 ML SYRINGE IVP SCH (18:47)
[2022-08-23] MEDS: ASPIRIN EC 81 MG TABLET PO SCH (20:50)
[2022-08-23] MEDS: ethyl alcohoL 62% SWAB AMPULE NAS SCH (20:51)
[2022-08-24] MEDS: NS W/20 MEQ KCL 1,000 ML IV SCH (00:06)
[2022-08-24] MEDS: traMADol 50 MG TABLET PO SCH ×3 (00:19→11:23)
[2022-08-24] MEDS: SODIUM CHLORIDE FLUSH 0.9% 10 ML SYRINGE IVP SCH ×2 (01:16→07:46)
[2022-08-24] MEDS: ACETAMINOPHEN 500 MG TABLET PO SCH ×2 (01:33→07:45)
[2022-08-24] MEDS ORDERED: CEFAZOLIN 2G/50ML 0.9% NS 2 GM/50 ML BAG IV SCH (02:00)
[2022-08-24] MEDS ORDERED: DEXAMETHASONE 10 MG/ML VIAL IVP ONE ×2 (07:00→07:41)
[2022-08-24] MEDS: ASPIRIN EC 81 MG TABLET PO SCH (07:45)
[2022-08-24] MEDS: CELECOXIB 100 MG CAPSULE PO SCH (07:45)
[2022-08-24] MEDS: ethyl alcohoL 62% SWAB AMPULE NAS SCH (07:45)
[2022-08-24] MEDS: polyethylene glycoL 3350 17 GM PACKET PO SCH (07:46)
[2022-08-24 10:05] VITALS: BP 113/72
--- NOTE | 2022-08-24 10:08 | PROVIDER PROGRESS NOTE ---
Subjective - General Procedure Date: 08/23/22 Post Op Days: 1 Procedure Performed: Left total knee arthroplasty - Other Other Information/Narrative: Alert, lying semirecumbent in bed. She denies chest pain, dyspnea, nausea, emesis She has passed urine several times Pain is well controlled She is looking forward to discharge home today. Objective - Patient Data Reviewed Vital Signs: Yes Vital Signs: Vital Signs x48h Temp Pulse Resp BP BP Pulse Ox 08/24/22 08:00 36.8 C 101 H 16 133/77 H 95 08/24/22 05:30 37.0 C 99 20 129/86 H 95 Weight: Weight 08/22/22 08/23/22 08/24/22 23:59 23:59 23:59 Weight (kg) 80 kg Intake & Output: Intake and Output Totals x24h 08/22/22 08/23/22 08/24/22 23:59 23:59 23:59 Intake Total 2290 840 Output Total 1450 1800 Balance 840 -960 - Imaging Results Radiology Imaging: positive: Final report received - Current Medications Current Medications: Current Medications Generic Name Dose Route Start Last Admin Trade Name Freq PRN Reason Stop Dose Admin Acetaminophen 1,000 mg 08/23/22 13:00 08/24/22 07:45 Acetaminophen 500 Mg Tablet PO 1,000 mg Q6H SUNDAR Administration Alcohol 1 amp 08/23/22 21:00 08/24/22 07:45 Ethyl Alcohol 62% Swab Ampule JOSÉ MIGUEL 1 amp BID SUNDAR Administration Aspirin 81 mg 08/23/22 21:00 08/24/22 07:45 Aspirin Ec 81 Mg Tablet PO 81 mg BID SUNDAR Administration Celecoxib 200 mg 08/23/22 19:00 08/24/22 07:45 Celecoxib 100 Mg Capsule PO 200 mg BID SUNDAR Administration Potassium Chloride/Sodium Chloride 1,000 mls @ 100 mls/hr 08/23/22 11:00 08/24/22 00:06 Normal Saline 0.9% W/20 Meq Kcl IV 100 mls/hr .Q10H SUNDAR Administration Oxycodone HCl 5 mg 08/23/22 10:40 08/23/22 20:50 Oxycodone 5 Mg Tablet PO 5 mg Q6HR PRN Administration Severe Breakthrough pain(8-10) Polyethylene Glycol 17 gm 08/23/22 13:00 08/24/22 07:46 Polyethylene Glycol 3350 17 Gm Packet PO 17 gm DAILY SUNDAR Administration Sodium Chloride 10 ml 08/23/22 17:00 08/24/22 07:46 Sodium Chloride Flush 0.9% 10 Ml Syringe IVP 10 ml 0100,0900,1700 SUNDAR Administration Tramadol HCl 50 mg 08/23/22 12:00 08/24/22 05:39 Tramadol 50 Mg Tablet PO 50 mg Q6HR SUNDAR Administration - Physical Exam Comments/Other: Well-developed, well-nourished, 66-year-old female, no acute distress Dressing is dry and intact without drainage secured with an Joshua wrap bandage Neurovascular intact to the left lower extremity ABX Reporting Has patient been on IV antibiotics over the past 48 hours?: Yes Impression/Plan - Problem List Problem List: 66-year-old female with a past medical history of diabetes mellitus (reported most recent A1c 6.5) is postoperative day 1 from a left total knee arthroplasty by Dr. Lockwood at [facility] on 08/23/2022. She is recovering well with adequate pain control and is tolerating oral intake. She will be working with physical therapy today in an anticipated discharge of home later this afternoon. Plan: -Weightbearing as tolerated with front wheeled walker at all times -Follow-up with [facility] orthopedic clinic next week on Sunday -Take aspirin 81 mg twice daily for 6 weeks for blood clot prevention -Refer to pain medication schedule and joint camp booklet for ibuprofen, Tylenol, tramadol and oxycodone for pain control when you return home -Physical therapy is scheduled as an outpatient -Resume all home medications when returning home - Physical therapy and Occupational Therapy to mobilize the patient and evaluate for safe discharge home with training for stairs and gait - Continue bowel regimen - Dressing to remain in place until follow up - OPS discharge instructions provided post operatively
== END 2022-08-24 11:33 | disposition home or self-care (01) ==
LOC: SDS 06:32 → MS3 11:44 → SDS 08-24 11:33
PROVIDERS: ATTEND Orthopaedic Surgery
DX: M17.12 Unilateral primary osteoarthritis, left knee (principal); M21.162 Varus deformity, not elsewhere classified, left knee; E11.9 Type 2 diabetes mellitus without complications; G47.30 Sleep apnea, unspecified; Z79.84 Long term (current) use of oral hypoglycemic drugs; Z96.651 Presence of right artificial knee joint
CPT/HCPCS: 27447; 73560; 97110; 97161; 97166; 97530; 97535; A9270; C1713; J0690; J3370; J7120

== ENCOUNTER 2022-10-05 08:00 | Outpatient (CLI) | payer MEDICARE, OTHER ==
--- NOTE | 2022-10-05 14:38 | XRAY Report ---
PROCEDURE: Knee 4 View LT INDICATIONS: LEFT TOTAL KNEE TECHNIQUE: 3 views of the left knee(s) were acquired. COMPARISON: None. FINDINGS: Bones: Total left knee prosthesis in place. No evidence of hardware failure or loosening. Soft tissues: No knee joint effusion. No suspicious soft tissue calcifications or masses. IMPRESSION: Total left knee prosthesis in good position Reviewed by: Dm Mason MD on 10/05/2022 1:37 PM AKDT Approved by: Dm Mason MD on 10/05/2022 1:37 PM AKDT Station ID: [id number]
== END 2022-10-05 23:59 | disposition home or self-care (01) ==
LOC: DI.WOS 08:00
PROVIDERS: ATTEND Orthopaedic Surgery
DX: Z96.653 Presence of artificial knee joint, bilateral (principal)

== ENCOUNTER 2023-05-09 15:07 | Outpatient (CLI) | payer MEDICARE, OTHER ==
--- NOTE | 2023-05-09 18:42 | DEXA Report ---
PROCEDURE: Dexa Spine and/or Hip INDICATIONS: POST MENOPAUSAL TECHNIQUE: Dual energy x-ray absorptiometry (DXA) was performed on a Cogniscan System. Regions measur ed are the AP Spine, femoral neck, and if needed forearm. COMPARISON: None FINDINGS: Lumbar Spine: Bone Mineral Density 1.233 g/cm/cm,T score 0.4. Normal Left Femoral Neck: Bone Mineral Density 0.825 g/cm/cm, T score -1.5, osteopenia. Left Hip: Bone Mineral Density 1.000 g/cm/cm,T score -0.1. Normal (T score greater or equal to -1.0: NORMAL) (T score from -1.1 to -2.4: OSTEOPENIA) (T score less than or equal to -2.5 to: OSTEOPOROSIS) Impression: By WHO criteria, this patient has low bone density (osteopenia). Patients with diagnosis of osteoporosis or osteopenia should have regular bone mineral density assess ment. For those eligible for Medicare, routine testing is allowed once every 2 years. Testing frequ ency can be increased for patients who have rapidly progressing disease or for those who are receivin g medical therapy to restore bone mass. Reviewed by: Elvie Merrill MD on 05/09/2023 6:41 PM PST Approved by: Elvie Merrill MD on 05/09/2023 6:41 PM PST Station ID: [id number]
== END 2023-05-09 15:08 | disposition home or self-care (01) ==
LOC: DI 15:07
PROVIDERS: ATTEND Internal Medicine
DX: Z78.0 Asymptomatic menopausal state (principal); M85.88 Other specified disorders of bone density and structure, other site

== ENCOUNTER 2023-08-28 13:08 | Outpatient (CLI) | payer MEDICARE, OTHER ==
--- NOTE | 2023-08-29 06:52 | XRAY Report ---
PROCEDURE: Shoulder 2+V RT INDICATIONS: SHOULDER PAIN TECHNIQUE: 3 views of the shoulder were acquired. COMPARISON: None FINDINGS: Bones: No fractures or dislocations. No suspicious bony lesions. Visualized ribs appear intact. M ild degenerative changes noted involving the acromioclavicular and glenohumeral joints Soft tissues: No suspicious soft tissue calcifications. IMPRESSION: Mild degenerative changes without fracture or dislocation Reviewed by: Dm Mason MD on 08/29/2023 5:50 AM AKDT Approved by: Dm Mason MD on 08/29/2023 5:50 AM AKDT Station ID: [id number]
--- NOTE | 2023-08-29 06:54 | XRAY Report ---
PROCEDURE: Knee 4+V BL INDICATIONS: (B) TOTAL KNEE REPLACEMENT TECHNIQUE: 3 views of the knee was obtained. COMPARISON: 08/21/2023, 10/05/2022, 08/23/2022 FINDINGS: Bones: Bilateral knee arthroplasty noted in good position. No evidence of hardware failure or loosen ing. No fracture. Soft tissues: Small bilateral knee joint effusion. No suspicious soft tissue calcifications or eugenie s. IMPRESSION: Bilateral knee arthroplasty without fracture or hardware failure. Reviewed by: Dm Mason MD on 08/29/2023 5:52 AM AKLOCO Approved by: Dm Mason MD on 08/29/2023 5:52 AM AKLOCO Station ID: [id number]
== END 2023-08-28 13:09 | disposition home or self-care (01) ==
LOC: DI 13:08
PROVIDERS: ATTEND Orthopaedic Surgery
DX: M19.011 Primary osteoarthritis, right shoulder (principal); Z47.1 Aftercare following joint replacement surgery; Z96.653 Presence of artificial knee joint, bilateral

== ENCOUNTER 2023-08-30 10:23 | Outpatient (CLI) | payer MEDICARE, OTHER ==
--- NOTE | 2023-08-31 00:55 | XRAY Report ---
PROCEDURE: Humerus RT INDICATIONS: RIGHT ARM PAIN TECHNIQUE: 2 views of the humerus were acquired. COMPARISON: None FINDINGS: Bones: No fractures or dislocations. No suspicious bony lesions. Soft tissues: No suspicious soft tissue calcifications. IMPRESSION: Unremarkable humeral radiographs Reviewed by: Dm Mason MD on 08/30/2023 11:54 PM AKDT Approved by: Dm Mason MD on 08/30/2023 11:54 PM AKDT Station ID: [id number]
== END 2023-08-30 10:24 | disposition home or self-care (01) ==
LOC: DI 10:23
PROVIDERS: ATTEND Orthopaedic Surgery
DX: M79.601 Pain in right arm (principal)

== ENCOUNTER 2023-10-08 15:55 | Outpatient (CLI) | payer MEDICARE, OTHER ==
--- NOTE | 2023-10-09 09:36 | MRI Report ---
PROCEDURE: Shoulder RT WO INDICATIONS: RT ARM BICEPS STRAIN TECHNIQUE: Noncontrast oblique coronal T2 fast spin echo with fat saturation, oblique sagittal T1 spin echo and T2 fast spin echo with fat saturation, axial T1 spin echo and T2 fast spin echo with fat saturation t hrough the shoulder. COMPARISON: X-ray right shoulder, 08/28/2023, x-ray right humerus, 08/30/2023. FINDINGS: Image quality: Excellent. Rotator cuff: There is full-thickness tear of the supraspinatus tendon with tendon retraction. There is full-thickness tear of the superior fibers of the subscapularis tendon. There is severe subscapularis tendinosis. No high-grade tendon tear. Mild infraspinous muscle atrophy . There is moderate supraspinous muscle atrophy, and mild infraspinous and subscapularis muscle atrophy . Bones and bursae: No bone marrow contusions or fractures. Moderate acromioclavicular and glenohumera l joint degeneration. The acromion demonstrates conventional anatomy, without an os acromiale. Moder ate glenohumeral joint effusion. Capsule and soft tissues: There is degenerative fraying of the glenoid labrum. The glenohumeral ligam ents appear intact. The intraarticular segment of the long head of the biceps tendon is not visualiz ed, likely torn. The rotator interval appears normal, without fibrosis. The coracohumeral ligament is normal in thickness. IMPRESSION: 1. Full-thickness tear of the supraspinatus tendon. There is tendon retraction. 2. Full-thickness tear of the superior fibers of the subscapularis tendon. 3. Severe infraspinatus tendinosis without high-grade tear. 4. Moderate supraspinous muscle atrophy. Mild infraspinous and subscapularis muscle atrophy. 5. The long head of the biceps tendon is torn. 6. Moderate acromioclavicular and glenohumeral joint degeneration. 7. Degenerative fraying of the labrum. 8. Moderate glenohumeral joint effusion. Reviewed by: Andrés Pope MD on 10/09/2023 8:34 AM AKDT Approved by: Andrés Pope MD on 10/09/2023 8:34 AM AKDT Station ID: [id number]
== END 2023-10-08 15:56 | disposition home or self-care (01) ==
LOC: DI 15:55
PROVIDERS: ATTEND Physician Assistant Surgical
DX: M75.121 Complete rotator cuff tear or rupture of right shoulder, not specified as traumatic (principal); M62.511 Muscle wasting and atrophy, not elsewhere classified, right shoulder; S46.111A Strain of muscle, fascia and tendon of long head of biceps, right arm, initial encounter; M19.011 Primary osteoarthritis, right shoulder; M25.811 Other specified joint disorders, right shoulder; M25.411 Effusion, right shoulder